=== PATIENT | female | born 2000 | race Caucasian/White ===

== ENCOUNTER 2020-05-08 08:04 | Emergency (ER) | payer OTHER ==
[2020-05-08 08:09] VITALS: BP 117/78
[2020-05-08] MEDS ORDERED: DIAZEPAM 5 MG TABLET PO ONE (08:49)
[2020-05-08] MEDS ORDERED: KETOROLAC TROMETHAMINE 60 MG/2 ML SDV IM ONE (08:49)
--- NOTE | 2020-05-08 08:56 | ER Document Report ---
ED General - General Stated Complaint: BACK PAIN Time Seen by Provider: 05/08/20 08:44 Primary Care Provider: THIERNO MANZANARES DO [ACTIVE STAFF] - Follow up as needed Notes: CHIEF COMPLAINT: Low back pain HPI: 19-year-old female presenting for evaluation of low back pain that began last night. No specific trauma but patient is concerned that she may have twisted or turned and injured the back. Pain seems to also radiate through the left gluteal region into the leg with walking or standing. No incontinence of urine or bowel no perineal numbness. Has had back issues like this previously has not had them evaluated. No dysuria. Denies ROS: See HPI - all other systems were reviewed and are otherwise negative Constitutional: no fever GI: no vomiting, no diarrhea, no abdominal pain : no dysuria Integumentary: no rash Allergy: no hives Musculoskeletal: no extremity pain or swelling. Positive back pain Neurological: no numbness/tingling, no weakness MEDICATIONS: I agree with the patient medications as charted by the RN. ALLERGIES: I agree with the allergies as charted by the RN. PAST MEDICAL HISTORY/PAST SURGICAL HISTORY: Reviewed and agree as charted by RN. SOCIAL HISTORY: Reviewed and agree as charted by RN. FAMILY HISTORY: No significant familial comorbid conditions directly related to patient complaint EXAM: Reviewed vital signs as charted by RN. CONSTITUTIONAL: Alert and oriented and responds appropriately to questions. Well-appearing; well-nourished HEAD: Normocephalic; atraumatic EYES: Conjunctivae clear, sclerae non-icteric ENT: normal nose; no rhinorrhea; moist mucous membranes NECK: Supple without meningismus; non-tender; no cervical lymphadenopathy, no masses CARD: symmetric distal pulses RESP: Normal chest excursion without splinting or tachypnea ABD/GI: Normal bowel sounds; non-distended; soft, non-tender, no rebound, no guarding; no palpable organomegaly or masses. BACK: The back appears normal and is mildly tender to palpation across the lumbar back bilaterally, there is no CVA tenderness EXT: Normal ROM in all joints; non-tender to palpation; no cyanosis, no effusions, no edema SKIN: Normal color for age and race; warm; dry; good turgor; no acute lesions noted NEURO: Moves all extremities equally; Motor and sensory function intact. Strength equal 5/5 bilateral lower extremities. Sensation intact and equal bilateral lower extremities. Straight leg raise is negative. No saddle anesthesia on exam. DTRs 2+ intact and equal bilateral lower extremities. PSYCH: The patient's mood and manner are appropriate. Grooming and personal hygiene are appropriate. MDM: 19-year-old female presenting for low back pain possible injury yesterday but nothing specific just became progressively more uncomfortable. She is absolutely no urinary symptoms suggesting UTI at this time. Will give Toradol and Valium in the emergency department anticipate discharge home on anti- inflammatory muscle relaxer, no indication for emergent imaging at this time. She will be referred to orthopedics Past Medical History - Social History Smoking Status: Unknown if Ever Smoked Family History: Reviewed & Not Pertinent Physical Exam - Vital signs Vitals: Temp Pulse Resp BP Pulse Ox 98.1 F 108 H 16 117/78 100 05/08/20 08:08 05/08/20 08:08 05/08/20 08:08 05/08/20 08:08 05/08/20 08:08 Course - Vital Signs Vital signs: Temp Pulse Resp BP Pulse Ox 98.1 F 108 H 16 117/78 100 05/08/20 08:08 05/08/20 08:08 05/08/20 08:08 05/08/20 08:08 05/08/20 08:08 - Laboratory Results Critical Laboratory Results Reviewed: No Critical Results - Radiology Results Critical Radiology Results Reviewed: No Critical Results Discharge - Discharge Clinical Impression: Low back pain Qualifiers: Chronicity: acute Back pain laterality: bilateral Sciatica presence: with sciatica Sciatica laterality: sciatica of left side Qualified Code(s): M54.42 - Lumbago with sciatica, left side Condition: Stable Disposition: HOME, SELF-CARE Instructions: Low Back Pain ([facility]) Additional Instructions: 1. Warm heat to the lower back twice daily 2. no heavy lifting for 2-3 days 3. medications as prescribed, no driving on muscle relaxers 4. follow up with orthopedics for further evaluation and treatment as needed for any continuing pain or problems, call for appt. 5. return to the ER for any onset of incontinence of urine, fever > 101 or worsening condition Prescriptions: Cyclobenzaprine HCl [Flexeril 10 mg Tablet] 10 mg PO TIDP PRN #15 tab PRN Reason: Diclofenac Sodium [Voltaren 50 Mg Tablet.] 50 mg PO BID #20 tablet. Referrals: THIERNO MANZANARES DO [ACTIVE STAFF] - Follow up as needed
[2020-05-08 08:58] LABS: APPEARANCE,URINE SLIGHTLY-CLOUDY; BILIRUBIN,URINE NEGATIVE (NEGATIVE); COLOR,URINE YELLOW; GLUCOSE, URINE NEGATIVE (NEGATIVE); KETONES,URINE NEGATIVE (NEGATIVE); LEUKOCYTE ESTERASE,URINE NEGATIVE (NEGATIVE); NITRITE,URINE NEGATIVE (NEGATIVE); PROTEIN,URINE NEGATIVE (NEGATIVE); UROBILINOGEN,URINE NEGATIVE mg/dL (<2.0)
== END 2020-05-08 09:38 | disposition home or self-care (01) ==
LOC: ER 08:04
DX: M54.42 Lumbago with sciatica, left side (principal); M54.9 Dorsalgia, unspecified
CPT/HCPCS: 99284; 96372; 81001; J1885

== ENCOUNTER 2020-05-12 10:54 | Day surgery (SDC) | payer OTHER ==
[~2020-05-12 10:54] MED LIST: LACTATED RINGERS 1000 ML IV PRN
[2020-05-12 11:26] LABS: APPEARANCE,URINE SLIGHTLY-CLOUDY; BILIRUBIN,URINE NEGATIVE (NEGATIVE); COLOR,URINE YELLOW; GLUCOSE, URINE NEGATIVE (NEGATIVE); KETONES,URINE NEGATIVE (NEGATIVE); LEUKOCYTE ESTERASE,URINE NEGATIVE (NEGATIVE); NITRITE,URINE NEGATIVE (NEGATIVE); PROTEIN,URINE NEGATIVE (NEGATIVE); URINE SPECIFIC GRAVITY 1.019; UROBILINOGEN,URINE NEGATIVE mg/dL (<2.0)
[2020-05-12 11:29] LABS: HEMATOCRIT 40.1 % (36.0-47.0); HEMOGLOBIN 13.2 g/dL (12.0-15.5); MEAN CORPUSCULAR HEMOGLOBIN 27.4 pg (27.0-33.4); MEAN CORPUSCULAR HGB CONC 32.8 g/dL (32.0-36.0); MEAN CORPUSCULAR VOLUME 83 fl (80-97); PLATELET COUNT 247 10^3/uL (150-450); RED BLOOD COUNT 4.82 10^6/uL (3.72-5.28); WHITE BLOOD COUNT 4.7 10^3/uL (4.0-10.5)
[2020-05-12] MEDS ORDERED: MIDAZOLAM 2 MG/2 ML INJ ONE (12:56)
[2020-05-12] MEDS ORDERED: FENTANYL CITRATE INJ/PF 100 MCG/2 ML AMPUL ONE (12:56)
[2020-05-12] MEDS ORDERED: PROPOFOL INJ 200 MG/20 ML VIAL IV ONE (12:56)
[2020-05-12] MEDS ORDERED: FENTANYL CITRATE INJ/PF 100 MCG/2 ML AMPUL IV PRN ×3 (13:37)
[2020-05-12] MEDS ORDERED: MEPERIDINE HCL/PF INJ 25 MG/1 ML DISP.SYRIN IV PRN (13:37)
[2020-05-12] MEDS ORDERED: MORPHINE SULFATE 10 MG/ML INJ IV PRN (13:37)
[2020-05-12] MEDS ORDERED: OXYCODONE-ACETAMINOPHEN 5-325 MG TABLET PO PRN ×4 (13:37→13:54)
[2020-05-12] MEDS ORDERED: DIPHENHYDRAMINE HCL 50 MG/ML VIAL IV PRN (13:37)
[2020-05-12] MEDS ORDERED: PROMETHAZINE HCL INJ 25 MG/1 ML VIAL IV PRN ×2 (13:37)
[2020-05-12] MEDS ORDERED: ONDANSETRON HCL INJ/PF 4 MG/2 ML SDV IV PRN (13:37)
[2020-05-12] MEDS ORDERED: IBUPROFEN 800 MG TABLET PO PRN (13:54)
[2020-05-12] MEDS ORDERED: KETOROLAC TROMETHAMINE INJ/PF 30 MG/1 ML SDV IV PRN (13:54)
[2020-05-12] MEDS ORDERED: RINGERS SOLUTION,LACTATED 1,000 ML IV PRN (13:54)
--- NOTE | 2020-05-12 14:05 | Operative Report ---
Operative Report DATE OF SURGERY: 05/12/20 PREOPERATIVE DIAGNOSIS: Retained Intrauterine device, unable to remove in offic e. Abnormal uterine bleeding POSTOPERATIVE DIAGNOSIS: Same as above OPERATION: Operative hysteroscopy with removal of retained intrauterine device SURGEON: PHIL TRAN ANESTHESIA: GA TISSUE REMOVED OR ALTERED: None COMPLICATIONS: None ESTIMATED BLOOD LOSS: 10cc INTRAOPERATIVE FINDINGS: Cervix appeared grossly normal. As hysteroscope was being advanced through the internal os the base of the IUD could be seen with the strings going upward. Endometrium appeared normal and both ostia were identified during hysteroscopy. No polyps or fibroids noted PROCEDURE: IV fluids: Crystalloid IV fluids per anesthesia record UOP: Bladder emptied prior to the procedure Disposition: To recovery room in stable condition Description of the procedure: The patient was taken to the operating room where monitored anesthesia was administered and found to be adequate. She was then placed in the dorsol lithotomy position and prepped and draped in the usual sterile fashion. A timeout was taken. A weighted speculum and stevenson retractor were placed in the vagina and the cervix was brought into good view. A single- tooth tenaculum was used to grasp the anterior lip of the cervix and the cervix was serially dilated. The uterus sounded to approximately 7 cm. The hysteroscope was then inserted using a saline solution for distention. The IUD was seen as soon as the hysteroscope entered the internal os. The strings were going upward. Using a grasper the IUD base was grasped and the IUD was easily removed intact. The hysteroscope was then reinserted and using a saline distention medium the uterine cavity was inspected. Multiple pictures were obtained. The endometrial cavity appeared normal. Both ostia were identified. No deficits, fibroids or polyps identified. The hysteroscope was withdrawn. The procedure was then terminated all instrument to remove the patient's vagina. The patient tolerated the procedure well all instrument sponge and needle counts were correct x2 for the procedure she will proceed to recovery room in stable condition
--- NOTE | 2020-05-12 14:07 | Discharge Summary ---
Discharge Summary ([facility]) - Discharge Final Diagnosis: Retained intrauterine device Abnormal uterine bleeding Date of Surgery: 05/12/20 Discharge Date: 05/12/20 Condition: Stable Treatment or Instructions: Walk frequently Regular diet No intercourse until post-op visit May shower as needed No driving a car until pain prescriptions stopped and can make sudden movements Prescriptions: Ibuprofen [Motrin 800 mg Tablet] 800 mg PO Q8 10 Days #30 tablet Referrals: PHIL TRAN MD [ACTIVE PROVISIONAL STAFF] - Discharge Diet: As Tolerated, Regular Respiratory Treatments at Home: Deep Breathing/Coughing Discharge Activity: Activity As Tolerated, Pelvic Rest, Slowly Increase Activity, No tub bath, Walk Frequently Home Care Assistance: None Needed Report the Following to Your Physician Immediately: Shortness of Breath, Vomiting, Increase in Pain, Fever over 101 Degrees, Drainage-Foul Smelling, Large Clots, IV Site Infection Signs
[2020-05-12] MEDS ORDERED: IBUPROFEN 800 MG TABLET ONE (14:34)
[2020-05-12 15:37] VITALS: BP 133/80
== END 2020-05-12 15:42 | disposition home or self-care (01) ==
LOC: OROUT 10:54 → MERGE 10:54 → OROUT 15:42
PROVIDERS: ATTEND Obstetrics & Gynecology
DX: Z30.432 Encounter for removal of intrauterine contraceptive device (principal); N93.9 Abnormal uterine and vaginal bleeding, unspecified; Z01.812 Encounter for preprocedural laboratory examination; Z20.822 Contact with and (suspected) exposure to COVID-19; Z79.899 Other long term (current) drug therapy
CPT/HCPCS: 36415; 85027; 87635; 81025; 81001; 58562; J2250; J3010; J2704; C9803; 952